=== PATIENT | female | born 1995 | race Two or more races ===

== ENCOUNTER 2018-03-08 18:33 | Observation (INO) | payer MEDICAID ==
[2018-03-08] MEDS ORDERED: BETAMETHASONE ACET (6MG/ML) 5ML VIAL IM ONE (18:45)
[2018-03-08] MEDS ORDERED: TERBUTALINE SULFATE 1 MG/ML 1ML VIAL SC ONE (19:21)
[2018-03-08] MEDS ORDERED: TERBUTALINE SULFATE 1 MG/ML 1ML VIAL SC SCH (19:30)
[2018-03-09] MEDS ORDERED: PREN-96 PO (19:43)
== END 2018-03-08 20:30 | disposition home or self-care (01) | DRG 566 ==
LOC: LDRP 18:33
PROVIDERS: ADMIT Obstetrics & Gynecology; ATTEND Obstetrics & Gynecology
DX: O36.5930 Maternal care for other known or suspected poor fetal growth, third trimester, not applicable or unspecified (principal); Z3A.32 32 weeks gestation of pregnancy
CPT/HCPCS: 59025; 81002; 96372; G0378; J0702; J3105

== ENCOUNTER 2018-03-09 19:10 | Observation (INO) | payer MEDICAID ==
[~2018-03-09] VITALS: Ht 154.9 cm; Wt 83.0 kg
[2018-03-09] MEDS ORDERED: BETAMETHASONE ACET (6MG/ML) 5ML VIAL IM ONE (19:30)
[2018-03-09] MEDS ORDERED: PREN-96 PO (19:43)
== END 2018-03-09 20:38 | disposition home or self-care (01) | DRG 566 ==
LOC: LDRP 19:10 → UNDODISOB 20:38
PROVIDERS: ADMIT Obstetrics & Gynecology; ATTEND Obstetrics & Gynecology
DX: O36.5930 Maternal care for other known or suspected poor fetal growth, third trimester, not applicable or unspecified (principal); Z3A.32 32 weeks gestation of pregnancy
CPT/HCPCS: 59025; 81002; 96372; G0378; J0702

== ENCOUNTER 2018-03-12 10:51 | Observation (INO) | payer MEDICAID ==
[~2018-03-12 10:51] MED LIST: PREN-96 PO
== END 2018-03-12 13:00 | disposition home or self-care (01) | DRG 955 ==
LOC: LDRP 10:51
PROVIDERS: ADMIT Specialist; ATTEND Specialist
DX: O36.5990 Maternal care for other known or suspected poor fetal growth, unspecified trimester, not applicable or unspecified (principal); O26.893 Other specified pregnancy related conditions, third trimester; Z3A.32 32 weeks gestation of pregnancy
CPT/HCPCS: 59025; 76818; 81002; G0378

== ENCOUNTER 2018-03-15 11:20 | Observation (INO) | payer MEDICAID | END 2018-03-15 12:45 | disposition home or self-care (01) | DRG 566 | LOC: LDRP 11:20 | PROVIDERS: ADMIT Specialist; ATTEND Specialist | DX: O36.5930 Maternal care for other known or suspected poor fetal growth, third trimester, not applicable or unspecified (principal); O26.893 Other specified pregnancy related conditions, third trimester; N89.8 Other specified noninflammatory disorders of vagina; Z3A.33 33 weeks gestation of pregnancy | CPT/HCPCS: 59025; 76818; 81002; G0378 ==

== ENCOUNTER 2018-03-22 11:55 | Observation (INO) | payer MEDICAID | END 2018-03-22 12:55 | disposition home or self-care (01) | DRG 566 | LOC: LDRP 11:55 | PROVIDERS: ADMIT Specialist; ATTEND Specialist | DX: O36.5930 Maternal care for other known or suspected poor fetal growth, third trimester, not applicable or unspecified (principal); Z3A.34 34 weeks gestation of pregnancy | CPT/HCPCS: 59025; 76818; 81002; G0378 ==

== ENCOUNTER 2018-03-28 11:13 | Observation (INO) | payer MEDICAID | END 2018-03-28 12:30 | disposition home or self-care (01) | DRG 566 | LOC: LDRP 11:13 | PROVIDERS: ADMIT Specialist; ATTEND Specialist | DX: O36.5930 Maternal care for other known or suspected poor fetal growth, third trimester, not applicable or unspecified (principal); Z3A.35 35 weeks gestation of pregnancy | CPT/HCPCS: 59025; 76818; 81002; G0378 ==

== ENCOUNTER 2018-03-31 09:25 | Observation (INO) | payer MEDICAID | END 2018-03-31 11:20 | disposition home or self-care (01) | DRG 566 | LOC: LDRP 09:25 | PROVIDERS: ADMIT Specialist; ATTEND Specialist | DX: O36.5930 Maternal care for other known or suspected poor fetal growth, third trimester, not applicable or unspecified (principal); Z3A.35 35 weeks gestation of pregnancy | CPT/HCPCS: 59025; 76818; 81002; G0378 ==

== ENCOUNTER 2018-04-07 11:00 | Observation (INO) | payer MEDICAID | END 2018-04-07 13:15 | disposition home or self-care (01) | DRG 566 | LOC: LDRP 11:00 | PROVIDERS: ADMIT Specialist; ATTEND Specialist | DX: O36.5930 Maternal care for other known or suspected poor fetal growth, third trimester, not applicable or unspecified (principal); Z3A.36 36 weeks gestation of pregnancy | CPT/HCPCS: 59025; 76818; 81002; G0378 ==